=== PATIENT | female | born 1980 | race Caucasian/White ===

== ENCOUNTER → 2017-11-10 | Outpatient (REF) | payer OTHER | LOC: ZZSENDIN 12:40 | PROVIDERS: ATTEND Obstetrics & Gynecology | DX: O60.00 Preterm labor without delivery, unspecified trimester (principal) | CPT/HCPCS: 82731 ==

== ENCOUNTER 2017-12-22 04:20 | Inpatient (IN) | payer OTHER ==
[~2017-12-22] VITALS: Ht 165.1 cm; Wt 75.7 kg
[2017-12-22] MEDS ORDERED: FAMOTIDINE(*) 20MG/50ML PREMIX 50 ML IVPB PRN (04:26)
[2017-12-22] MEDS ORDERED: OXYTOCIN 30 UNIT/D5LR 500 ML 500 ML IV PRN ×3 (04:26→05:29)
[2017-12-22] MEDS ORDERED: DLR(*) 1000 ML BAG 1,000 ML IV SCH (04:26)
[2017-12-22] MEDS ORDERED: LIDOCAINE/SOD BICARB 8.4% SYR SC PRN (04:30)
[2017-12-22] MEDS ORDERED: METOCLOPRAMIDE 10 MG/2 ML SDV IVP PRN (04:30)
[2017-12-22] MEDS ORDERED: MISOPROSTOL 25 MCG CAP PV PRN (04:30)
[2017-12-22] MEDS ORDERED: FLUSH 10 ML SYR IVP PRN (04:30)
[2017-12-22] MEDS ORDERED: LIDOCAINE 1% LOCAL 300 MG/30ML INJ PRN (04:30)
[2017-12-22] MEDS ORDERED: fentaNYL CITR 100 MCG/2 ML AMP IVP PRN (04:30)
[2017-12-22 05:21] LABS: PLATELET COUNT, AUTOMATED 221 K/uL (150-450)
[2017-12-22 05:25] VITALS: BP 114/55; Ht 165.1 cm; Wt 75.7 kg
[2017-12-22] MEDS: LR(*) 1000 ML BAG 1,000 ML IV PRN ×3 (06:03→18:58)
[2017-12-22] MEDS ORDERED: PREN-127 PO (07:30)
[2017-12-22] MEDS ORDERED: GABA-549 PO (07:30)
[2017-12-22] MEDS ORDERED: EPIDURAL KEYS XX PRN (07:55)
[2017-12-22] MEDS ORDERED: LIDOCAINE/PF 2% 200MG/10ML AMP 200 MG/10 ML AMPUL EPI PRN (08:00)
[2017-12-22] MEDS ORDERED: BUPIVACAINE 0.5% INJ 30ML VIAL EPI PRN (08:00)
[2017-12-22] MEDS ORDERED: BUPIVACAINE 0.25% MPF INJ EPI PRN (08:00)
[2017-12-22] MEDS ORDERED: FENTANYL/ROPIVACAINE 100 ML BAG EPI PRN (08:00)
[2017-12-22] MEDS ORDERED: ePHEDrine 25 MG/5 ML DISP.SYR IVP PRN (08:00)
[2017-12-22] MEDS ORDERED: LIDO/EPI 2% MPF 1:200,000 20ML EPI PRN (08:00)
[2017-12-22] MEDS ORDERED: fentaNYL CITR 100 MCG/2 ML AMP IT PRN (08:00)
--- NOTE | 2017-12-22 08:30 | History & Physical ---
History of Present Illness Age of Patient: 37 : 6 Para or TPAL: 5005 EDC per LMP: Dec 28, 2017 Estimated Gestational Age: 39.1 Chief Complaint IOL History of Present Illness The patient is a 37 year old 6 para 5005 admitted at 39 1/7 weeks estimated gestational age with an estimated date of delivery 12/28/17. Patient is admitted for IOL for distance from delivering hospital. No vaginal bleeding. Good movement and occasional contractions. She was evaluated for active labor. She had an uncomplicated course. Her record was reviewed. History Allergies: Coded Allergies: dopamine (Verified Allergy, Unknown, 12/22/17) latex (Verified Allergy, Unknown, 12/22/17) progesterone (Verified Allergy, Unknown, 12/22/17) Med Rec Home Meds Reported Medications Gabapentin (GABAPENTIN) 300 Mg Capsule, 900 MG PO DAILY for PAIN, CAPSULE 12/22/17 Vits W-Ca,Fe,Fa(<1MG) ( VITAMINS) 1 Each Tablet, 1 EACH PO DAILY, TAB 12/22/17 Exam General Exam Vital Signs Vital Signs Date Time Temp Pulse Resp B/P (MAP) Pulse Ox O2 Delivery O2 Flow Rate FiO2 12/22/17 05:25 99.4 82 20 114/55 (74) 94 Room Air Cardiovascular: Regular Rate and Rhythm Respiratory: Clear to Auscultation Abdomen: Gravid - Non-Tender Extremities: No Edema Cervical Dialation: 3 (RN) Uterine Contractions(Q min): 3 Fetus Heart Tones: 130 FHT Category: I Medical Decision Making Data Points Result Diagram: 12/22/17 0510 Assessment and Plan Problems: (1) , normal subsequent Assessment & Plan: PATIENT LIVES IN [place] DESIRED TO DELIVER AT [facility]. DESIRED IOL, PITOCIN STARTED THIS AM. DESIRES EPIDURAL. WILL MONITOR FOR CERVICAL CHANGE, AROM WHEN ABLE. Copies to: LAURA SUÁREZ MD, JOHN MD Dec 22, 2017 08:29
--- NOTE | 2017-12-22 09:34 | Anesthesia OB Pre-Anes Eval ---
History of Present Illness Anesthesia Start Date: Dec 22, 2017 Anesthesia Start Time: 08:25 OB Anesthesia Diagnosis: induction - elective Complications: None known EDC: Dec 28, 2017 : 6 Para: 5 Vital Signs: Vital Signs Date Time Temp Pulse Resp B/P (MAP) Pulse Ox O2 Delivery O2 Flow Rate FiO2 12/22/17 05:25 99.4 82 20 114/55 (74) 94 Room Air Pain Ratin Heart Tones: WNL Result Diagram: 12/22/17 0510 Height (Inches): 65.00 Weight (Pounds): 167 BMI Calculated: 27.79 Past Medical History Medical History: other ("a nerve problem") Surgical History: appendectomy Previous Anesthesia: general, epidural Attended Childbirth Classes?: No Hx Anesthesia Reactions: No Hx Family Anesthesia Reaction: No Current Medications: pitocin Home Meds Reported Medications Gabapentin (GABAPENTIN) 300 Mg Capsule, 900 MG PO DAILY for PAIN, CAPSULE 12/22/17 Vits W-Ca,Fe,Fa(<1MG) ( VITAMINS) 1 Each Tablet, 1 EACH PO DAILY, TAB 12/22/17 Allergies: Coded Allergies: dopamine (Verified Allergy, Unknown, 12/22/17) latex (Verified Allergy, Unknown, 12/22/17) progesterone (Verified Allergy, Unknown, 12/22/17) Anesthesia OB ROS Neurological: No migraines/headaches, No seizures, No neuropathy ENT: Denies Tooth caps, Denies Loose teeth, Denies Chipped teeth, Denies Dentures, Denies Bridges, Denies Retainers, Denies Veneers, Denies Implants, Denies Tongue ring Pulmonary: No asthma, No smoker (pks/day/yrs) Cardiovascular ROS: No edema, No arrhythmia GI ROS: clear liquids Last Solids Date: Dec 21, 2017 Last Solids Time: 18:00 ROS: No Herpes, No STD(s), No Liver Disease, No Renal Disease Endocrine ROS: No diabetes, No gestational diabetes, No thyroid disorder Musculoskeletal ROS: No low back pain, No low back injury, No scoliosis ASA Classification: 2 Assessment and Plan Anesthesia Plan: CSE Assessment Past Medical, Surgical, Family and Obstetric Histories reviewed. Please see ACOG chart. Epidural anesthesia risks, complications and benefits explained to patient's satisfaction for labor and vaginal delivery and/or section. General anesthesia risks and benefits explained to patient' s satisfaction. Questions invited, none asked. MIRIAM ALBERTO CRNA Dec 22, 2017 09:33
--- NOTE | 2017-12-22 09:37 | Procedure Note ---
Anesthetic Placement Note Anesthesia Plan: CSE Permit for Anesthesia Signed: Yes Anesthesia Technique: Patient Sitting Anesthesia Prep: Chlorhexidine Interspace: L 3-4 Local Anesthetic: 1% Lidocaine, 25 Gauge Needle Amount Local - cc's: 2 Anesthesia Needle: 17g Touhy/Schliff Anesthesia Attempts: 1 Loss of Resistance: Air Depth of ELVIS (cm): 4 Epidural Needle Placement: No CSF, No Blood, No Parasthesia Intrathecal Needle: 27 Gauge Pencan Cerebral Spinal Fluid: Yes, Clear Catheter Insertion (cm): 7 Catheter Type: Pizarro - Spring Wound Epidural Dressing: Tegaderm, Tape, Adhesive [place] Anesthesia Tray: Lot Number ([id number]), Expiration Date (2018-08-05), Reference Number ([id number]) Anesthesia Medications: Intrathecal Dose: mcg Fentanyl (15), mg Marcaine MPF (1.75), Time (0842) Epidural Test Dose: 1.5 Lido/Epi (1:200,000), Dose - mL (2), Time (0904), Negative Epidural Loading Dose: 0.2% Ropivicaine, With Fentanyl 2mcg/ml, Dose - ml (4), Time (0905) Epidural Infusion: 0.2% Ropivicaine, With Fentanyl 2mcg/ml, Start Time: (0905) Epidural Pump Setting: Bolus Dose - mL (4), Lockout - Minutes (20), Maintenance Rate - mL/hr (4), Maximum per Hour - mL (19) Complications: None Comment: Vital signs stable. Patient comfortable and condition stable. Pt. states she does not feel any contractions. MIRIAM ALBERTO CRNA Dec 22, 2017 09:37
--- NOTE | 2017-12-22 09:39 | Anesthesia Progress Note ---
Progress/Maintenance Anesthesia Note Date: Dec 22, 2017 Anesthesia Note Time: 09:30 Pain Intensity: 0 Pump: On Pump Rate (ML/HR): 4 Sensory Level: T-12 Motor Level: Bending Knees-Bilateral Dilatation: 3 Position: Left, Tilt Assessment and Plan Anesthesia Plan: CSE Assessment Pt. is attempting to sleep. No mention of feeling contractions. MIRIAM ALBERTO CRNA Dec 22, 2017 09:39
--- NOTE | 2017-12-22 11:30 | Labor Progress Note ---
Labor Subjective Progress Notes Subjective called for prolonged bradycardia Labor Objective Vital Signs Vital Signs Date Time Temp Pulse Resp B/P (MAP) Pulse Ox O2 Delivery O2 Flow Rate FiO2 12/22/17 05:25 99.4 82 20 114/55 (74) 94 Room Air Cervical Dialation: 3 Uterine Contractions(Q min): 3 Fetus Heart Tones: 150 Heart Tone Variabilty: Moderate FHT Decelerations: Variable, Prolonged FHT Category: II Other Result Diagram: 12/22/17 0510 Assessment and Plan Problems: (1) , normal subsequent Assessment & Plan: pitocin stopped, will allow recovery and consider IUPC and FSE to monitor more closely LAURA SUÁREZ MD Dec 22, 2017 11:30
[2017-12-22] MEDS ORDERED: NS(*) 0.9% 1000 ML BAG 1,000 ML PV PRN (13:04)
--- NOTE | 2017-12-22 13:04 | Labor Progress Note ---
Labor Subjective Progress Notes Subjective comfortable with epidural Vaginal Discharge/Fluid: Clear Fluid Labor Pain: Comfortable Labor Objective Vital Signs Vital Signs Date Time Temp Pulse Resp B/P (MAP) Pulse Ox O2 Delivery O2 Flow Rate FiO2 12/22/17 05:25 99.4 82 20 114/55 (74) 94 Room Air Cervical Dialation: 4 Cervical Effacement (%): 75 Cervical Consistency: Soft Cervical Position: Mid Station: -1 Presentation: Vertex Uterine Contractions(Q min): 3 Uterine Contraction Strength: Moderate Fetus Heart Tones: 130 Heart Tone Variabilty: Moderate FHT Accelerations: 15X15 FHT Category: I Other Result Diagram: 12/22/17 0510 Assessment and Plan Problems: (1) , normal subsequent Assessment & Plan: AROM AND IUPC FSE PLACED, WILL MONITOR FOR CERVICAL CHANGE. MAY NEED AMNIOINFUSION WITH COPIOUS AMOUNT OF FLUID WITH AROM LAURA SUÁREZ MD Dec 22, 2017 13:04
[2017-12-22] MEDS ORDERED: NS(*) 0.9% 1000 ML BAG 1,000 ML ONE (13:08)
--- NOTE | 2017-12-22 13:14 | Anesthesia Progress Note ---
Progress/Maintenance Anesthesia Note Date: Dec 22, 2017 Anesthesia Note Time: 13:00 Pain Intensity: 1 Pump: On Pump Rate (ML/HR): 4 Sensory Level: T-12 Motor Level: Bending Knees-Bilateral, Other (rt side heavier) Position: Left, Tilt Assessment and Plan Assessment Remain comfortable, feeling only pressure with contractions. MIRIAM ALBERTO CRNA Dec 22, 2017 13:14
--- NOTE | 2017-12-22 15:40 | Anesthesia Progress Note ---
Progress/Maintenance Anesthesia Note Date: Dec 22, 2017 Anesthesia Note Time: 15:10 Pain Intensity: 8 Pump: On Pump Rate (ML/HR): 4 Sensory Level: T-12 Motor Level: Bending Knees-Bilateral Dilatation: 6 Position: Right, Tilt Drug Bolus: 0.5% Marcaine (4 ml), Other (Fentenyl 50 mcgs) Assessment and Plan Assessment Pt. suddenly started to feel stronger contractions. Bolus per pump given followed by manual bolus of Fentenyl and 0.5% Marcaine, 4 ml. Pt. observed for next 5 contractions and quick improvement in comfort level noted. Pt. became to calmly talk thru contractions. MIRIAM ALBERTO CRNA Dec 22, 2017 15:40
--- NOTE | 2017-12-22 15:56 | Anesthesia Progress Note ---
Progress/Maintenance Anesthesia Note Date: Dec 22, 2017 Anesthesia Note Time: 15:50 Pain Intensity: 5 Pump: On Pump Rate (ML/HR): 6 Sensory Level: T-12 Motor Level: Other (rt leg heavy) Dilatation: 6 Position: Left, Tilt Drug Bolus: 0.5% Marcaine (4 ml), Other (Fentenyl 35 mcgs) Assessment and Plan Assessment Pt. feeling that contractions are becoming stronger. Assisted to turn to left side. Rate of epidural pump increased to 6 ml/hr and manual bolus of Fentenyl and 0.5% Marcaine given. MIRIAM ALBERTO CRNA Dec 22, 2017 15:56
--- NOTE | 2017-12-22 17:35 | Labor Progress Note ---
Labor Subjective Progress Notes Subjective comfortable with epidural Vaginal Discharge/Fluid: Clear Fluid Labor Pain: Comfortable Labor Objective Vital Signs Vital Signs Date Time Temp Pulse Resp B/P (MAP) Pulse Ox O2 Delivery O2 Flow Rate FiO2 12/22/17 05:25 99.4 82 20 114/55 (74) 94 Room Air Cervical Dialation: 7 Cervical Effacement (%): 90 Cervical Consistency: Soft Cervical Position: Anterior Station: 0 Presentation: Vertex Uterine Contractions(Q min): 3 Uterine Contraction Strength: Strong Fetus Heart Tones: 120 Heart Tone Variabilty: Moderate FHT Accelerations: 15X15 FHT Decelerations: Early Other Result Diagram: 12/22/17 0510 Assessment and Plan Problems: (1) , normal subsequent Assessment & Plan: progressing slowly will monitor for change LAURA SUÁREZ MD Dec 22, 2017 17:35
[2017-12-22] MEDS ORDERED: CARBOPROST TROMETHAM 250MCG/ML IM ONLY ONE (18:54)
[2017-12-22] MEDS ORDERED: METHYLERGONOVINE MAL 0.2MG/ML ONE (18:54)
--- NOTE | 2017-12-22 19:55 | Anesthesia Progress Note ---
Progress/Maintenance Anesthesia Note Date: Dec 22, 2017 Anesthesia Note Time: 17:00 Pain Intensity: 4 Pump: On Pump Rate (ML/HR): 6 Motor Level: Bending Knees-Bilateral Dilatation: 6 Report Received From: Kitty Houston CRNA Care Assumed By: BENOIT Rey BETH CRNA Dec 22, 2017 19:55
--- NOTE | 2017-12-22 20:01 | Anesthesia Progress Note ---
Progress/Maintenance Anesthesia Note Date: Dec 22, 2017 Anesthesia Note Time: 17:45 Pain Intensity: 8 Pump: On Pump Rate (ML/HR): 6 Motor Level: Bending Knees-Bilateral Dilatation: 7 Position: Right, Tilt Drug Bolus: 0.2% Ropivicaine, Fentanyl 2mcg/ml (10 cc) Anesthesia Treatment: bolus via pump BAMBI ZIMMERMAN CRNA Dec 22, 2017 20:01
--- NOTE | 2017-12-22 20:02 | Anesthesia Progress Note ---
Progress/Maintenance Anesthesia Note Date: Dec 22, 2017 Anesthesia Note Time: 19:45 Pain Intensity: 3 Pump: On Pump Rate (ML/HR): 6 Motor Level: Bending Knees-Bilateral Dilatation: 9 Anesthesia Treatment: pt encouraged to hit her pump button, succesful relief BAMBI ZIMMERMAN CRNA Dec 22, 2017 20:02
--- NOTE | 2017-12-22 20:23 | Labor Progress Note ---
Labor Subjective Progress Notes Subjective comfortable with epidural Vaginal Discharge/Fluid: Clear Fluid Labor Objective Vital Signs Vital Signs Date Time Temp Pulse Resp B/P (MAP) Pulse Ox O2 Delivery O2 Flow Rate FiO2 12/22/17 05:25 99.4 82 20 114/55 (74) 94 Room Air Cervical Dialation: 9 (RN) Station: 0 Presentation: Vertex Uterine Contractions(Q min): 3 Uterine Contraction Strength: Strong Fetus Heart Tones: 130 Heart Tone Variabilty: Moderate Other Result Diagram: 12/22/17 0510 Assessment and Plan Problems: (1) , normal subsequent (2) Active labor at term Assessment & Plan: CERVIX CHANGING, SOME SWELLING OF CERVIX WILL MONITOR FOR CHANGE LAURA SUÁREZ MD Dec 22, 2017 20:23
[2017-12-22] MEDS ORDERED: GLYCERIN/WITCH HAZEL LEAF 1 PK TP PRN (21:25)
[2017-12-22] MEDS ORDERED: LANOLIN OINT 7 GM TUBE TP PRN (21:25)
[2017-12-22] MEDS ORDERED: MEASLES,MUMP,RUBELLA VAC 0.5ML SUBQ ONE (21:25)
[2017-12-22] MEDS ORDERED: HYDROCORTISONE 2.5% CR 30GM TB PR PRN (21:25)
[2017-12-22] MEDS ORDERED: MAGNESIUM HYDROXIDE* 30ML UDCP PO PRN (21:25)
[2017-12-22] MEDS ORDERED: BENZOCAINE 20% 60 ML BTL TP PRN (21:25)
[2017-12-22] MEDS ORDERED: DIPHTH/TETANUS/ACEL. PERTUSSIS IM ONLY ONE (21:25)
[2017-12-22] MEDS ORDERED: ACETAMINOPHEN 325 MG TAB PO PRN (21:25)
[2017-12-22] MEDS ORDERED: INFLUENZA VIRUS VAC 0.5 ML SYR IM ONLY ONE (21:25)
--- NOTE | 2017-12-22 21:26 | OB Delivery Note ---
Delivery Note Vaginal Delivery Type: Spont. Vaginal Delivery Delivery Date: Dec 22, 2017 Delivery Time: 21:12 Estimated Gestational Age(wks): 39.1 Delivery Anesthesia: Epidural Sex: Male Weight (gms): 3366 Apgars: 1 Minute (8), 5 Minute (8) Estimated Blood Loss: 250 Delivery Complications: Nuchal Cord Notes: IOL, PITOCIN, MADE SLOW PROGRESS RECEIVED EPIDURAL, AROM CLEAR FLUID, SLOWLY PROGRESSED TO ANTERIOR LIP AND PUSHED PAST AND DELIVERED INFANTS VERTEX. NUCHAL CORD DELIVERED AROUND HEAD NEEDED. REMAINDER OF INFANT DELIVERED WITH EASE. NO LACERATIONS. Doctor'S Assistant in Attendence: No Copies to: LAURA SUÁREZ MD, JOHN MD Dec 22, 2017 21:26
--- NOTE | 2017-12-22 21:30 | Anesthesia Progress Note ---
Assessment and Plan Anesthesia Plan: CSE Anesthesia Stop Day: Dec 22, 2017 Anesthesia Stop Time: 21:25 Epidural Catheter Removal: Removed Catheter Intact, Yes, Removed by: (RN) Removal Date: Dec 22, 2017 BAMBI ZIMMERMAN CRNA Dec 22, 2017 21:30
[2017-12-22] MEDS: IBUPROFEN 800 MG TAB PO SCH (22:03)
[2017-12-23 00:07] VITALS: BP 108/57
[2017-12-23] MEDS ORDERED: LR(*) 1000 ML BAG 1,000 ML ONE (01:40)
[2017-12-23 05:00] VITALS: BP 96/55
[2017-12-23 07:15] VITALS: BP 115/56
[2017-12-23] MEDS: MULTIVITAMINS (PRENATAL) TAB PO SCH (08:40)
[2017-12-23] MEDS: FERROUS SULFATE 325 MG TAB PO SCH ×2 (08:40→17:48)
[2017-12-23] MEDS: IBUPROFEN 800 MG TAB PO SCH ×2 (08:40→17:48)
[2017-12-23] MEDS: DOCUSATE CALCIUM 240 MG CAP PO SCH ×2 (08:44→20:37)
--- NOTE | 2017-12-23 11:12 | Anesthesia Post Eval Note ---
Anesthesia Post Eval Note Vital Signs 12/22/17 12/23/17 05:25 07:15 Temp 98.6 Pulse 68 Resp 18 B/P (MAP) 115/56 (75) Pulse Ox 94 O2 Delivery Room Air Pt able to participate in Eval: Yes Cardiovascular Status: Satisfactory Respiratory Status: Satisfactory Pain Managment: Satisfactory PO Nausea/Vomiting: Satisfactory Temperature Management: Satisfactory Mental Status: Satisfactory, Alert, Oriented X3 Post-Op Hydration Status: Satisfactory, Tolerating PO Well, Voiding w/o Difficulty Anesthesia Type: BAMBI BECERRA CRNA Dec 23, 2017 11:12
[2017-12-23] MEDS: HYDROmorphone HCL 2 MG TAB PO PRN ×4 (11:39→22:30)
[2017-12-23 11:49] VITALS: BP 103/57
[2017-12-23 16:16] VITALS: BP 108/52
--- NOTE | 2017-12-23 16:35 | OB/GYN Progress Note ---
OB Subjective Progress Notes Subjective Tired. No pain. No dizziness or chest pain with ambulation. Voiding with out any difficulty. Tolerating regular diet. GI: NEG Nausea, NEG Vomiting, NEG Flatus, NEG Bowel Movement : Voiding Well, Vaginal Bleeding, Moderate Pain: Mild Neurological: No Headache, No Other Eyes: No Visual Disturbances OB Objective Physical Exam Vital Signs Date Time Temp Pulse Resp B/P (MAP) Pulse Ox O2 Delivery O2 Flow Rate FiO2 12/23/17 16:16 98.4 90 17 108/52 (70) Room Air 12/22/17 05:25 94 Intake and Output 12/24/17 07:00 Output Total 350 ml Balance -350 ml Output Urine Total 350 ml General Appearance: Alert/Awake/No Acute Distress Neurological: No Gross deficits Eyes: Normal Extraocular Movement & Vison, PERRLA ENT: Normal Neck: No Masses Cardiovascular: Normal Rhythm & Peripheral Pulses, Regular Rate and Rhythm Respiratory: No Respiratory Distress, Clear to Auscultation Abdomen: Soft, Non-Tender, Non-Distended : Normal Musculoskeletal: No Weakness/Pain Extremities: No Cyanosis,Clubbing or Edema, No Edema Integumentary: Skin Intact without Lesions or Rash Psychological: Alert & Oriented X3, Appropriate Mood & Affect Result Diagram: 12/23/17 0555 Assessment and Plan 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 Pt came in with chronic anemia with a Hemoglobin of 8.7 and dropped to 7.7. No symptoms. Will start Iron BID. CHARLENE SHIELDS DO Dec 23, 2017 16:35
[2017-12-23 20:30] VITALS: BP 112/61
[2017-12-24 00:30] VITALS: BP 91/55
[2017-12-24] MEDS: IBUPROFEN 800 MG TAB PO SCH ×2 (00:33→08:29)
[2017-12-24 03:30] VITALS: BP 108/58
[2017-12-24 07:05] VITALS: BP 102/56
[2017-12-24] MEDS: HYDROmorphone HCL 2 MG TAB PO PRN ×2 (07:11→10:30)
[2017-12-24] MEDS ORDERED: HYDR2TAB4 PO (07:46)
[2017-12-24] MEDS ORDERED: DOCU240C67 PO (07:46)
[2017-12-24] MEDS ORDERED: FERR-41 PO (07:46)
[2017-12-24] MEDS ORDERED: IBUP800T37 PO (07:46)
--- NOTE | 2017-12-24 07:49 | OB/GYN Discharge Summary ---
Discharge Summary Reason for Hosp/Final Diag: (1) , normal subsequent (2) Active labor at term Status: Resolved (3) care following vaginal delivery Hospital Course & Plan: VAG DELIVERY ON DAY 2, Pain controlled, Tolerating diet and activity. Baby . Normal lochia. Lates Vital Signs Vital Signs Date Time Temp Pulse Resp B/P (MAP) Pulse Ox O2 Delivery O2 Flow Rate FiO2 12/24/17 07:05 97.5 70 12 102/56 (71) Room Air 12/22/17 05:25 94 Weight (Pounds): 167 Result Diagram: 12/23/17 0555 Condition: Improved Discharge: Home, Self Prison Meds Active Scripts Ibuprofen (IBUPROFEN) 800 Mg Tablet, 1 TAB PO Q8H, #30 TAB 0 Refills Take with food every 8 hours. Prov:LAURA CARTER MD 12/24/17 Hydromorphone Hcl (HYDROMORPHONE HCL) 2 Mg Tablet, 2-4 MG PO Q4H for PAIN, #20 TAB 0 Refills Prov:LAURA CARTER MD 12/24/17 Ferrous Sulfate (FERROUS SULFATE) 325 Mg Tablet.dr, 1 TAB PO BID, #60 TAB 0 Refills Prov:LAURA CARTER MD 12/24/17 Docusate Calcium (DOCUSATE CALCIUM) 240 Mg Capsule, 1 CAP PO BID, #60 CAPSULE 0 Refills Prov:LAURA CARTER MD 12/24/17 Reported Medications Gabapentin (GABAPENTIN) 300 Mg Capsule, 900 MG PO DAILY for PAIN, CAPSULE 12/22/17 Vits W-Ca,Fe,Fa(<1MG) ( VITAMINS) 1 Each Tablet, 1 EACH PO DAILY, TAB 12/22/17 Follow up with: Dr. Carter [phone] Follow up in: 6 wks PP or PO Discharge Diet: As Tolerates Discharge Activity: Pelvic Rest Copies to: LAURA CARTER MD, JOHN MD Dec 24, 2017 07:49
[2017-12-24] MEDS: MULTIVITAMINS (PRENATAL) TAB PO SCH (08:29)
[2017-12-24] MEDS: FERROUS SULFATE 325 MG TAB PO SCH (08:29)
[2017-12-24] MEDS: DOCUSATE CALCIUM 240 MG CAP PO SCH (08:29)
== END 2017-12-24 11:10 | disposition home or self-care (01) | DRG 775 ==
LOC: OB 04:20
PROVIDERS: ADMIT Obstetrics & Gynecology; ATTEND Obstetrics & Gynecology
PROC: 10E0XZZ Delivery of Products of Conception, External Approach (ICD-10-PCS; principal; 2017-12-22)
PROC: 10907ZC Drainage of Amniotic Fluid, Therapeutic from Products of Conception, Via Natural or Artificial Opening (ICD-10-PCS; 2017-12-22)
PROC: 10H07YZ Insertion of Other Device into Products of Conception, Via Natural or Artificial Opening (ICD-10-PCS; 2017-12-22)
PROC: 4A1H74Z Monitoring of Products of Conception, Cardiac Electrical Activity, Via Natural or Artificial Opening (ICD-10-PCS; 2017-12-22)
PROC: 3E033VJ Introduction of Other Hormone into Peripheral Vein, Percutaneous Approach (ICD-10-PCS; 2017-12-22)
DX: O69.81X0 Labor and delivery complicated by cord around neck, without compression, not applicable or unspecified (principal); O76 Abnormality in fetal heart rate and rhythm complicating labor and delivery; Z3A.39 39 weeks gestation of pregnancy; Z37.0 Single live birth; Z91.040 Latex allergy status; Z88.8 Allergy status to other drugs, medicaments and biological substances
CPT/HCPCS: 36415; 85025; 85027; 86850; 86900; 86901; J2590; J3010; J7120; S0020